=== PATIENT | male | born 1990 | race Caucasian/White ===

== ENCOUNTER 2017-10-24 15:07 | Emergency (ER) | payer SELFPAY | END 2017-10-24 17:57 | disposition left against medical advice (07) | LOC: FTE 17:57 | DX: Z53.21 Procedure and treatment not carried out due to patient leaving prior to being seen by health care provider (principal) ==

== ENCOUNTER 2017-10-25 07:16 | Emergency (ER) | payer OTHER ==
[2017-10-25] MEDS: BENOXINATE HCL/FLUORESCEIN SOD 5 ML OPHTH RIGHT EYE (07:35)
== END 2017-10-25 10:15 | disposition home or self-care (01) ==
LOC: FTE 07:16
DX: H57.8 Other specified disorders of eye and adnexa (principal)
CPT/HCPCS: 99283; Z7610

== ENCOUNTER 2018-04-07 07:41 | Emergency (ER) | payer OTHER | END 2018-04-07 08:23 | disposition home or self-care (01) | LOC: FTE 07:41 | DX: H92.01 Otalgia, right ear (principal) | CPT/HCPCS: 99283; Z7502 ==

== ENCOUNTER 2018-05-17 08:15 | Emergency (ER) | payer OTHER ==
[2018-05-17] MEDS: TETRACAINE 0.5% 4 ML OPH RIGHT EYE (09:10)
[2018-05-17] MEDS: FLUORESCEIN STRIP RIGHT EYE (09:10)
== END 2018-05-17 10:04 | disposition home or self-care (01) ==
LOC: FTE 08:15
DX: H57.89 Other specified disorders of eye and adnexa (principal)
CPT/HCPCS: 99283; Z7502